=== PATIENT | male | born 1990 | race African-American/Black ===

== ENCOUNTER 2022-05-13 21:28 | Emergency (ER) | payer OTHER ==
--- NOTE | 2022-05-13 22:24 | NUR ---
CALLED FOR TRIAGE FROM LOBBY AND OUTSIDE, NO ANSWER.
--- NOTE | 2022-05-13 22:27 | NUR ---
PATIENT LEFT WITHOUT BEING SEEN BY DR. SELLERS. NO FURTHER CARE PROVIDED FOR PATIENT.
== END 2022-05-13 22:27 | disposition left against medical advice (07) ==
LOC: MED 21:28
DX: R51.9 Headache, unspecified (principal); Z53.21 Procedure and treatment not carried out due to patient leaving prior to being seen by health care provider